=== PATIENT | female | born 1965 | race Caucasian/White ===

== ENCOUNTER 2021-05-22 00:27 | Day surgery (SDC) | payer OTHER, SELFPAY ==
[2021-05-12 13:54] VITALS: BMI 38.6
--- NOTE | 2021-05-22 07:05 | WPDANESEPPF ---
Anes - Initial Pre Proc Eval Procedure: Operation Date: 05/22/21 10:00 Proposed Procedures p Screening Colonoscopy - Orlando Ross MD Date/Time: 05/22/21 07:05 Surgeon: Orlando Ross MD Pre Op Diagnosis: neoplasm screening Patient Data Age: 56 Gender: F Height: 1.63 m Weight: 102 kg Allergies Allergy/AdvReac Type Severity Reaction Status Date / Time No Known Allergies Allergy Verified 05/22/21 08:47 Home Medications Medication Instructions Recorded Confirmed Type lisinopril 20 mg PO DAILY 05/12/21 05/22/21 History Patient hx anesthesia problems: none Family hx anesthesia problems: none Results Review: All pre-operative results and documents have been reviewed as part of the pre-operative evaluation. [facility] Past Medical History Medical History (Updated 05/22/21 @ 07:05 by Hieu Denise DO) Hypertension Social History Social History Smoking status: Never smoker Alcohol intake: never Substance use: never Substance use type: does not use Living arrangements: with family Spiritual care concerns: No Anes - Eval Final PreProcedure Day of Procedure 05/22/21 07:05 Patient weight: obese Heart: regular rate and rhythm Lungs: clear to auscultation and normal air movement Airway: Mallampati scale class II Neurological: alert and oriented Last oral intake: >/= 8 hours ASA classification: III Emergent: no Anesthetic plan: proceed Anesthesia type and monitoring: general GIVS and standard monitoring Results Review: All pre-operative results and documents have been reviewed as part of the pre-operative evaluation. Informed Consent: The patient's anesthetic plan and its attendant risks and benefits were discussed with the patient/family/POA. Questions were solicited and answers provided to the satisfaction of the patient/family/POA.
[2021-05-22 08:48] VITALS: BP 145/92; PULSE 99; RESP 18; TEMP 36.1; O2SAT 97
[2021-05-22] MEDS: LACTATED RINGERS 1,000 ML 150 ML IV CONT (08:57)
--- NOTE | 2021-05-22 09:07 | WPDGICN ---
Assessment and Plan Assessment and plan (1) Encounter for screening colonoscopy: Code(s): Z12.11 - Encounter for screening for malignant neoplasm of colon Status: Acute Assessment and Plan: Patient presents for screening colonoscopy. Appears to be at average risk for colon polyps. GI Consult Note Consult date/time: 05/22/21 09:07 HPI: Rajni Casanova is a 56 year old female Presents for screening colonoscopy. Patient's current weight appetite and bowel movements are normal. She denies abdominal pain. She has had no bleeding family history is noncontributory. Review of Systems Review of Systems: All systems reviewed & are unremarkable except as noted in HPI and below PMFSH Past Medical History Medical History (Updated 05/22/21 @ 09:08 by Orlando Ross MD) Hypertension Social History Social History Smoking status: Never smoker Alcohol intake: never Substance use: never Substance use type: does not use Living arrangements: with family Spiritual care concerns: No Meds Home Medications and Allergies Home Medications Medication Instructions Recorded Confirmed Type lisinopril 20 mg PO DAILY 05/12/21 05/22/21 History Allergies Allergy/AdvReac Type Severity Reaction Status Date / Time No Known Allergies Allergy Verified 05/22/21 08:47 Vital Signs Vital Signs - 24 hr 05/22/21 08:48 Temperature 97 F L Pulse Rate 99 Respiratory Rate 18 Blood Pressure 145/92 H Pulse Oximetry 97 Exam Narrative: Physical exam reveals patient to be alert. Vital signs stable. HEENT exam reveals no icterus. Lungs are clear. Heart without murmur. Abdomen bowel sounds are present soft nontender with no organomegaly. Digital external rectal exam is normal.
[2021-05-22 09:50] VITALS: BP 115/73; PULSE 97; RESP 24; O2SAT 93
[2021-05-22 10:00] VITALS: BP 122/64; PULSE 95; RESP 23; O2SAT 97
[2021-05-22 10:10] VITALS: BP 124/89; PULSE 97; RESP 21; O2SAT 97
== END 2021-05-22 10:19 | disposition home or self-care (01) ==
PROVIDERS: PCP Family Medicine; Visit Provider Internal Medicine Gastroenterology
PROC: 0DJD8ZZ Inspection of Lower Intestinal Tract, Via Natural or Artificial Opening Endoscopic (ICD-10-PCS; CPT 45378; principal; 2021-05-22 10:00)
DX: Z12.11 Encounter for screening for malignant neoplasm of colon (principal); D12.5 Benign neoplasm of sigmoid colon; K64.8 Other hemorrhoids; E66.9 Obesity, unspecified; Z68.38 Body mass index [BMI] 38.0-38.9, adult; I10 Essential (primary) hypertension
CPT/HCPCS: 45380; 88305; J2704; J7120